=== PATIENT | female | born 1955 | race Caucasian/White ===

== ENCOUNTER 2016-11-05 17:08 | Emergency (ER) | payer OTHER ==
[~2016-11-05] VITALS: Ht 162.6 cm; Wt 93.2 kg
[~2016-11-05 17:08] MED LIST: AMPYRA10 MG PO; COPAXONE20 MG/KIT SC; CYMBALTA20 MG PO; Cymbalta PO; DIOVAN HCT 31 TABLE1 PO; DIOVAN40 MG PO; GLUCOPHAGE500 MG PO; LIORESAL5 MG PO; Levothroid,Synthroid PO; Lioresal PO; NUVIGIL250 MG PO; PROVIGIL100 MG PO; TOVIAZ4 MG PO; Vicodin,Lortab 5/500 PO; Xanax PO
[2016-11-05 17:29] VITALS: BP 120/84
== END 2016-11-05 19:46 | disposition left against medical advice (07) ==
LOC: EME 17:08
DX: R07.9 Chest pain, unspecified (principal); E11.9 Type 2 diabetes mellitus without complications; I10 Essential (primary) hypertension
CPT/HCPCS: 80048; 83880; 84484; 85027; 93005; 99281; 99282